=== PATIENT | female | born 1980 | race Caucasian/White ===

== ENCOUNTER 2018-05-25 20:11 | Emergency (ER) | payer OTHER ==
[~2018-05-25] VITALS: Ht 157.5 cm; Wt 56.4 kg
[~2018-05-25 20:11] MED LIST: ANTIVERT12.5 MG PO; AZITHROMYC200 MG/5 M PO; BENTYL10 MG PO; CHERATUSSIN OR; CIPROFLOXACN500 MG PO; CONCEPT OB PO; DIFLUCAN150 MG OR; EC-NAPROSYN375 MG OR; INTEGRA F PO; METROGEL VAG0.75 % VA; MOTRIN600 MG/TAB PO; NAPROXEN375 MG PO; NO MEDS; OB COMPLET2 PO; OMEPRAZOLE20 MG PO; ORTHO TRI-CYCLEN LO OR; PEPTO-BISM524 MG/30 OR; PHENERGAN SUP12.5 MG RE; PRENATAL1 TAB PO; TUBERSOL5 MG/0.1 M ID; ZOFRAN ODT4 MG PO; ZPAK PO; ZYRTEC-D AL1 OR
[2018-05-25] MEDS ORDERED: (None)3.5 GM OS (20:38)
[2018-05-25] MEDS ORDERED: GENTAMICIN15 ML/BTL OS (20:38)
[2018-05-25 20:45] VITALS: BP 126/89
== END 2018-05-25 20:45 | disposition home or self-care (01) ==
LOC: ED 20:11
DX: H10.32 Unspecified acute conjunctivitis, left eye (principal); H57.12 Ocular pain, left eye

== ENCOUNTER 2024-04-25 09:03 | Emergency (ER) | payer OTHER ==
[~2024-04-25] VITALS: Ht 157.5 cm; Wt 57.0 kg
[~2024-04-25 09:03] MED LIST changes: +(None)3.5 GM OS; +GENTAMICIN15 ML/BTL OS
[2024-04-25 09:11] VITALS: BP 148/86
[2024-04-25 09:30] VITALS: BP 139/95
[2024-04-25 10:00] VITALS: BP 128/80
[2024-04-25] MEDS ORDERED: CLINDAMYCIN300 M1 PO (10:20)
[2024-04-25 10:30] VITALS: BP 107/78
[2024-04-25 10:33] VITALS: BP 107/78
== END 2024-04-25 10:50 | disposition home or self-care (01) ==
LOC: ED 09:03
DX: L03.012 Cellulitis of left finger (principal); F41.9 Anxiety disorder, unspecified; F17.200 Nicotine dependence, unspecified, uncomplicated; Z88.0 Allergy status to penicillin